=== PATIENT | female | born 1985 | race Two or more races ===

== ENCOUNTER → 2017-01-11 | Outpatient (CLI) | payer OTHER ==
[~2017-01-11] VITALS: Ht 177.8 cm; Wt 85.0 kg
[~2017-01-11] MED LIST: ACET50TA PO; COLA100C5 PO; DIBU1OIN TOP; MOTR200T44 PO; PRENTAB9 PO
[2017-01-11 15:11] VITALS: BP 108/71
[2017-01-11 15:31] VITALS: BP 109/63
[2017-01-11 16:14] VITALS: BP 112/63
[2017-01-11 16:17] LABS: ALT/SGPT 13 U/L (12-78); AST/SGOT 10 U/L (15-37); BILIRUBIN,TOTAL 0.2 MG/DL (0.2-1.0); GLOMERULAR FILTRATION RATE > 60.0 (>60); URIC ACID 4.3 MG/DL (2.6-6.0)
--- NOTE | 2017-01-11 18:04 | HPE ---
DATE OF ADMISSION: 01/11/2017 This is a 31-year-old 6, para 5 whose last period was 05/01/2016. Her due date is 02/05/2017 at 36 and 3 weeks of gestation. She was here today with a four-day history of a headache not relieved by Tylenol. She had some glitter in the eyes on Tuesday which resolved and she has no right upper quadrant pain. No decreased urine output and no aura. She has never had a history of chronic hypertension, gestational hypertension or preeclampsia. Her risk factors is that she has immune thrombocytic purpura (ITP) and she has a grand multip and had deliveries. Her past history is in 2002 at 37 weeks, a female spontaneous vaginal delivery, 8 pounds, 4 ounces with ITP. In 2005 at 37 weeks, a male spontaneous vaginal delivery, 8 pounds, 7 ounces, ITP. In 2008 at 37 weeks, a female spontaneous vaginal delivery, 8 pounds, 2 ounces with ITP. In 2010 at 35 and 5 weeks, a male spontaneous vaginal delivery, 5 pounds, ITP. In 2014 at 35 weeks, a male spontaneous vaginal delivery, 6 pounds, 7 ounces, with ITP. Today, her blood pressure is 108/71, respirations are 18, pulse 94, temperature 98.6. Urine dip was not done. She does not appear in any acute distress. She does have her headache with no aura, visual trauma. She is normocephalic, atraumatic. Neck: Full range of motion. Pupils are equal and reactive to light. No nystagmus. The thyroid is normal, midline. No jugular venous distention (JVD), bruits. Lungs are clear bilaterally to the bases. No edema anywhere. Her pulses are symmetric. Chest is clear. Back: No costovertebral angle (CVA) tenderness. Uterus is nontender. Four quadrant bowel sounds are noted. Symphysis fundus height is appropriate. She has no rashes, lesions or pruritus. No arthralgia or myalgia. No complaint cough, wheezes, shortness of breath or dyspnea on exertion. She has no chest pain. She is not bleeding. Neurologically complete. She has no incontinency, urgency, or frequency. No nausea, vomiting, diarrhea or constipation. No diabetic issues. 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 PAST MEDICAL HISTORY: immune thrombocytic purpura (ITP). PAST SURGICAL HISTORY: Noncontributory. FAMILY HISTORY: Noncontributory. SOCIAL HISTORY: She does not smoke, drink, or abuse drugs. 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 No domestic violence. LABORATORY DATA: Her laboratories are A+, HIV negative, hepatitis negative, RPR negative, rubella immune. Varicella immune. Pap normal. Urine negative. Gonorrhea and Chlamydia negative. Initial one-hour glucose was 79. One-hour GTT at 28 weeks was 160. GBS was negative. Her pre-eclamptic profile: Uric acid was 4.3. Liver functions were normal. GFR was normal. Protein creatinine ratio was 0.09. She did have some reflexes which were brisk, upper and lower extremities. No clonus. Upper extremities were normal with no edema. The patient was discharged. She said she cannot take anything but Tylenol or Tylenol Extra Strength for headache. Percocet, Fioricet, and any of the other narcotics do not agree with her. She was discharged with regarding precautions regarding preeclampsia and when to notify her provider. The patient has a followup in less than a week's time.
== END ==
LOC: M LDO 08:00
PROVIDERS: ATTEND Obstetrics & Gynecology
DX: O99.89 Other specified diseases and conditions complicating pregnancy, childbirth and the puerperium (principal); Z3A.36 36 weeks gestation of pregnancy; R51 Headache; D69.3 Immune thrombocytopenic purpura

== ENCOUNTER 2017-01-14 13:52 | Inpatient (IN) | payer OTHER ==
[2017-01-14] VITALS (14 sets, daily range): BP systolic 95–139; BP diastolic 48–87
[~2017-01-14] VITALS: Ht 177.8 cm; Wt 86.0 kg
[2017-01-14] MEDS ORDERED: PRENTAB9 PO (14:22)
[2017-01-14] MEDS ORDERED: LR 1,000 ML IV SCH (15:00)
[2017-01-14] MEDS ORDERED: OXYTOCIN DRIP 30 UNITS in APPROPRIATE DILUENT 1 EA IV SCH (15:00)
[2017-01-14 15:44] LABS: MEAN CORPUSCULAR HEMOGLOBIN 32.1 pg (27.0-33.0); MEAN CORPUSCULAR VOLUME 91.6 fl (80.0-96.0); RED CELL DISTRIBUTION WIDTH 12.8 % (11.5-14.5)
[2017-01-15] VITALS (73 sets, daily range): BP systolic 80–140; BP diastolic 41–70
[2017-01-15 01:03] LABS: MEAN CORPUSCULAR HEMOGLOBIN 32.9 pg (27.0-33.0); MEAN CORPUSCULAR HGB CONC 35.8 g/dl (32.0-36.5); MEAN CORPUSCULAR VOLUME 91.9 fl (80.0-96.0); RED CELL DISTRIBUTION WIDTH 12.9 % (11.5-14.5); WHITE BLOOD COUNT 14.4 K/mm3 (4.0-10.0)
[2017-01-15] MEDS ORDERED: FENTANYL 2MCG/ML ROPIVACAINE 0.2% IN 0.9% NACL 200ML IVBAG As Ordered ONE (01:15)
[2017-01-15] MEDS ORDERED: ePHEDrine SULFATE 25 MG/5 ML(5MG/ML) SYRINGE As Ordered ONE (02:22)
[2017-01-15] MEDS ORDERED: EPIDURAL/PCA KEYS XX PRN (08:15)
[2017-01-15] MEDS ORDERED: REFRIGERATOR IV KEYS XX PRN (08:15)
[2017-01-15] MEDS ORDERED: FENTANYL/ROPIVACAINE/NACL BAG 200 ML EPIDURAL SCH (08:15)
[2017-01-15] MEDS ORDERED: EPIDURAL COMMENT XX SCH (08:15)
[2017-01-15] MEDS ORDERED: diphenhydrAMINE INJ 50MG/ML VIAL (J1200) IV PRN (08:15)
[2017-01-15] MEDS ORDERED: NALOXONE INJ 0.4 MG/1 ML VIAL (J2310) IV PRN (08:15)
[2017-01-15] MEDS ORDERED: ONDANSETRON 4MG/2ML VIAL (J2405) IV PRN ×2 (08:15→09:15)
[2017-01-15] MEDS ORDERED: LACTATED RINGER'S 1000 ML IV PRN (08:15)
[2017-01-15] MEDS ORDERED: ePHEDrine SULFATE 25 MG/5 ML(5MG/ML) SYRINGE IV PRN (08:15)
[2017-01-15] MEDS ORDERED: OXYTOCIN DRIP 30 UNITS in APPROPRIATE DILUENT 1 EA IV SCH (09:06)
[2017-01-15] MEDS ORDERED: ACETAMINOPHEN 500 MG TAB PO PRN (09:15)
[2017-01-15] MEDS ORDERED: PROMETHAZINE 25 MG TAB PO PRN (09:15)
[2017-01-15] MEDS ORDERED: DIBUCAINE 1% OINTMENT 30GM TOP PRN (09:15)
[2017-01-15] MEDS ORDERED: MEASLES,MUMPS,RUBELLA VACCINE INJ (MMR-II) (90707) SC SCH (09:15)
[2017-01-15] MEDS ORDERED: RHOGAM 300 MCG (1500 IU) INJ (J2790) IM SCH (09:15)
[2017-01-15] MEDS ORDERED: METHYLERGONOVINE MALEATE 0.2 MG/ML VIAL (J2210) IM PRN (09:15)
[2017-01-15] MEDS ORDERED: miSOPROStol 200 MCG TAB (S0191) PR ONE (09:30)
[2017-01-15] MEDS ORDERED: LR 500 ML IV ONE (11:15)
[2017-01-15] MEDS ORDERED: LR 1,000 ML IV SCH (11:45)
[2017-01-15] MEDS: DOCUSATE SODIUM 100 MG CAP PO SCH (20:39)
[2017-01-15] MEDS: IBUPROFEN 800 MG TAB PO PRN ×2 (20:39→21:29)
[2017-01-16] MEDS: IBUPROFEN 800 MG TAB PO PRN (04:57)
[2017-01-16 06:00] VITALS: BP 104/65
[2017-01-16] MEDS: DOCUSATE SODIUM 100 MG CAP PO SCH (08:38)
[2017-01-16] MEDS ORDERED: PRENATAL VITAMINS CHEWABLE TABLET PO SCH (09:00)
[2017-01-16] MEDS ORDERED: INFLUENZA QUADRIVALENT PF VACCINE 0.5ML SYRINGE (90686) IM SCH (09:00)
[2017-01-16] MEDS ORDERED: MOTR200T44 PO (11:37)
[2017-01-16] MEDS ORDERED: ACET50TA PO (11:37)
[2017-01-16] MEDS ORDERED: DIBU1OIN TOP (11:37)
[2017-01-16] MEDS ORDERED: COLA100C5 PO (11:37)
== END 2017-01-16 12:09 | disposition home or self-care (01) | DRG 775 ==
LOC: M LDI 13:52 → UNDODISIN 01-15 09:50 → M OBS 01-15 14:25
PROVIDERS: ADMIT Obstetrics & Gynecology; ATTEND Obstetrics & Gynecology
PROC: 10E0XZZ Delivery of Products of Conception, External Approach (ICD-10-PCS; principal; 2017-01-15)
DX: O60.14X0 Preterm labor third trimester with preterm delivery third trimester, not applicable or unspecified (principal); Z37.0 Single live birth; Z3A.36 36 weeks gestation of pregnancy

== ENCOUNTER 2019-02-28 21:23 | Emergency (ER) | payer OTHER ==
[~2019-02-28] VITALS: Ht 177.8 cm; Wt 84.9 kg
[~2019-02-28 21:23] MED LIST changes: -ACET50TA PO; +MAPA500T2 PO
[2019-02-28] MEDS ORDERED: HM M250T PO (21:28)
[2019-02-28] MEDS ORDERED: ICAPTAB5 PO (21:28)
[2019-02-28] MEDS ORDERED: ZOLO25TA PO (21:28)
[2019-02-28 23:18] LABS: HEMATOCRIT 38.4 % (36.0-47.0); HEMOGLOBIN 12.6 g/dl (12.0-15.5); MEAN CORPUSCULAR HEMOGLOBIN 27.6 pg (27.0-33.0); MEAN CORPUSCULAR HGB CONC 32.8 g/dl (32.0-36.5); PLATELET COUNT, AUTOMATED 167 10^3/uL (150-450); RED BLOOD COUNT 4.57 10^6/uL (4.00-5.40); WHITE BLOOD COUNT 8.5 10^3/uL (4.0-10.0)
[2019-02-28 23:57] LABS: HCG, SERUM QUALITATIVE NEGATIVE (NEGATIVE)
[2019-03-01 00:28] LABS: BLOOD UREA NITROGEN 6 MG/DL (7-18); CALCIUM LEVEL 8.3 MG/DL (8.5-10.1); CARBON DIOXIDE LEVEL 26 MEQ/L (21-32); CHLORIDE LEVEL 111 MEQ/L (98-107); GLOMERULAR FILTRATION RATE > 60.0 (>60); GLUCOSE, FASTING 82 MG/DL (70-100); MAGNESIUM LEVEL 1.9 MG/DL (1.8-2.4); POTASSIUM SERUM 3.3 MEQ/L (3.5-5.1); SODIUM LEVEL 143 MEQ/L (136-145)
--- NOTE | 2019-03-01 01:02 | ECGEPIP ---
[facility] - ED Test Date: 2019-02-28 Pat Name: DARREN SCHWARTZ Department: Room: - Gender: Female Buffer Chrome: ct : 1985 Requested By: EVELYN GUIDRY Order Number: [id number] Reading MD: Quoc Reno Measurements Intervals [place] Rate: 72 P: 37 WI: 179 QRS: 11 QRSD: 105 T: 8 QT: 372 QTc: 408 Interpretive Statements SINUS RHYTHM WITH SINUS ARRHYTHMIA INCOMPLETE RIGHT BUNDLE BRANCH BLOCK NONSPECIFIC T WAVE ABNORMALITIES NO PRIORS FOR COMPARISON Electronically Signed on 03-01-2019 1:02:19 EDT by Quoc Reno
[2019-03-01 01:07] VITALS: BP 128/87
== END 2019-03-01 01:20 | disposition home or self-care (01) ==
LOC: M ED 21:23
DX: R00.2 Palpitations (principal); I45.19 Other right bundle-branch block; J44.9 Chronic obstructive pulmonary disease, unspecified; I10 Essential (primary) hypertension; E78.5 Hyperlipidemia, unspecified; F17.200 Nicotine dependence, unspecified, uncomplicated; Z82.49 Family history of ischemic heart disease and other diseases of the circulatory system; Z79.899 Other long term (current) drug therapy